=== PATIENT | male | born 1965 | race Caucasian/White ===

== ENCOUNTER 2021-10-27 08:27 | Day surgery (SDC) | payer BC ==
[~2021-10-27] VITALS: Ht 175.3 cm; Wt 96.8 kg
[~2021-10-27 08:27] MED LIST: ARTHRITIS PAIN150 GM TP; BUPROPION XL300 MG PO; CIALIS5 MG PO; DEPO-TESTO200 MG/1 M IM; LEVOTHYROXINE100 MC2 PO; LORATADINE10 MG PO; OMEPRAZOLE20 MG PO
[2021-10-27] MEDS ORDERED: AMOXICILLIN500 MG PO (08:58)
--- NOTE | 2021-10-27 10:51 | NUR ---
10/27/21 1051 [place] Jay 1047- PT ARRIVES TO PACU AWAKE AND TALKING. PT REPORTS NO PAIN OR NAUSEA. PT FALLS TO SLEEP. RESP EVEN AND UNLABORED. OXYGEN SAT MID TO HIGH 90'S ON 2L VIA NC.
--- NOTE | 2021-10-28 06:08 | OR ---
[facility] [address], [place] [address] Signed DATE OF OPERATION: 10/27/2021 SURGEON: Monalisa Beard MD PREOPERATIVE DIAGNOSES: 1. Personal history of colonic polyps, age 49 in 2014. 2. Minimal to moderate internal hemorrhoids with two tiny internal anal skin tags. PROCEDURE: Colonoscopy biopsy. ESTIMATED BLOOD LOSS: None. INDICATIONS: Liban is a 56-year-old gentleman asked to see me for followup colonoscopy. Previously, he lived in [place]. Around age 49, approximately in 2014, he underwent a colonoscopy while in [place]. He said polyps have been removed. He was told to follow up in 5 years. We are still trying to track down his records. Currently, he has no lower GI complaints. There is no family history of colon cancer or polyps. His primary care provider had him followup with me for repeat colonoscopy. In the office, I gave him a pamphlet on colonoscopy. He understands the nature of that test. There is risk including, but not limited to gas bloating, crampy abdominal pain, bleeding, perforation requiring surgery, and missed diagnosis. He also understands the need for IV conscious sedation. He had expressed understanding and wished to proceed. PROCEDURE NOTE: Liban was taken into our endoscopy suite and placed in the left lateral decubitus position. He was given 5 mg of Versed and 125 mcg of fentanyl to cover the case. A digital rectal exam was performed and this was unremarkable. The adult colonoscope was introduced and advanced around into the cecum under direct visualization of the camera without difficulty. His prep was moderate or slightly less than. He had a few areas of liquid particulate stool matter that I could not quite suction out completely. He would probably benefit from a double bowel prep in the future. The scope was then slowly withdrawn. We took pictures throughout for photodocumentation. We did not see any polyps or diverticulosis. Upon retroflexion of the scope in the rectum, we can see minimal to moderate standard internal hemorrhoid columns with a couple of tiny internal anal skin tags. After this, the gas was suctioned out and the colonoscope removed. Liban tolerated the procedure quite well. Electronically Signed By: MONALISA BEARD MD 10/28/21 0608 PATIENT NAME: LIBAN MCNEILL OPERATIVE REPORT DATE OF : 61 REPORT #: [id number] PHYSICIAN: MONALISA BEARD MD PCP: [facility] REPORT IS CONFIDENTIAL AND NOT TO BE RELEASED WITHOUT AUTHORIZATION [address] [address] Signed RECOMMENDATIONS: Liban can follow up in three years for repeat colonoscopy. He should use a double bowel prep in the future. MD DANN Mujica/JONOL /[id number] cc: [facility] Monalisa Beard MD Copies: MONALISA BEARD MD ~ Electronically Signed By: MONALISA BEARD MD 10/28/21 0608 PATIENT NAME: CHARITOLIBANNeva BRYANT OPERATIVE REPORT DATE OF : 61 REPORT #: [id number] PHYSICIAN: MONALISA BEARD MD PCP: [facility] REPORT IS CONFIDENTIAL AND NOT TO BE RELEASED WITHOUT AUTHORIZATION
== END 2021-10-27 11:24 | disposition home or self-care (01) ==
LOC: DS 08:27
PROVIDERS: ATTEND Colon & Rectal Surgery
PROC: 0DJD8ZZ Inspection of Lower Intestinal Tract, Via Natural or Artificial Opening Endoscopic (ICD-10-PCS; principal; 2021-10-27 09:45)
DX: K64.8 Other hemorrhoids (principal); K64.4 Residual hemorrhoidal skin tags; E66.9 Obesity, unspecified; E03.9 Hypothyroidism, unspecified; G47.30 Sleep apnea, unspecified; Z86.010 Personal history of colon polyps; Z68.31 Body mass index [BMI] 31.0-31.9, adult
CPT/HCPCS: 99153; G0500; J2250; J3010; J7121